=== PATIENT | female | born 1990 | race Two or more races ===

== ENCOUNTER 2018-09-23 02:48 | Emergency (ER) | END 2018-09-23 05:31 | disposition home or self-care (01) | DX: S63.592A Other specified sprain of left wrist, initial encounter (principal); S80.02XA Contusion of left knee, initial encounter; S30.0XXA Contusion of lower back and pelvis, initial encounter; Y04.8XXA Assault by other bodily force, initial encounter; Y93.89 Activity, other specified; Y92.89 Other specified places as the place of occurrence of the external cause; Y99.8 Other external cause status ==